=== PATIENT | male | born 1990 | race Two or more races ===

== ENCOUNTER 2019-12-06 10:01 | Emergency (ER) | payer SELFPAY ==
[2019-12-06 10:10] VITALS: BP 152/75; PULSE 81; RESP 18; TEMP 36.6; O2SAT 98; BMI 23.5
--- NOTE | 2019-12-06 10:26 | PC.NURSE ---
Ipad used for interpretation services.
--- NOTE | 2019-12-06 10:30 | CT_ITS ---
PROCEDURE: CT ABDOMEN PELVIS WO CON CLINICAL INDICATION: lower abd pain, vomitting COMPARISON: No exams were available for comparison TECHNIQUE: Axial images obtained with sagittal and coronal reformats. All CT scans at the facility use one or more dose reduction, viz: automated exposure control, ma/kV adjustment per patient size (including targeted exams where dose is matched to indication, i.e. head), or iterative reconstruction technique. FINDINGS: Lower thorax: No acute finding ABDOMEN: Liver: No masses or biliary dilatation. Gallbladder: There somewhat contracted however the stomach is distended with ingested food particles. There are no obvious gallstones but the bile is somewhat heterogenic suggesting possibility of biliary sludge. Pancreas: No masses or peripancreatic fluid collections. Spleen: unremarkable Adrenals: unremarkable Kidneys/ureters: unremarkable ABDOMEN & PELVIS: Stomach bowel: The stomach is distended with ingested food particles and gas but otherwise appears normal. The duodenal sweep and small bowel appear grossly normal. The appendix is not definitely seen but no pericecal inflammatory changes. There is moderate scattered stool and gas seen throughout the colon. There is mild diverticulosis of the lower descending sigmoid colon and pre diverticular changes of the sigmoid colon is well with accentuated haustra folds. Peritoneum: No abnormal fluid collections. No obvious inflammatory changes. No free air. Lymph nodes: No enlarged lymph nodes apparent. Vasculature: No evidence of abdominal aortic aneurysm. No retroperitoneal hemorrhage evident. Bones: No acute fracture PELVIS: Reproductive: unremarkable Bladder: Nondistended. No obvious stones or masses. The prostate is normal in size. Appendix: Not definitely visualized but no pericecal inflammatory changes are noted. IMPRESSION: Contracted gallbladder with some slightly heterogenic appearing bile suggesting possibility of biliary sludge and consider follow-up ultrasound right upper quadrant if clinically indicated. Findings of mild diverticulosis lower descending and sigmoid colon without diverticulitis Dictated by: Dr. Gunner Pope MD 12/06/2019 10:53 Dr. Gunner Pope MD in [facility] 12/06/2019 10:53
[2019-12-06 11:00] LABS: Basophils % 0.2 % (0.1-2.0); Eosinophils # 0.1 K/mm3 (0.0-0.4); Eosinophils % 0.6 % (0.1-12.0); Hematocrit 44.2 % (42.0-52.0); Hemoglobin 15.2 g/dL (14.1-18.0); Lymphocytes # 2.5 K/mm3 (0.7-4.5); Lymphocytes % 28.7 % (10-50); Mean Corpuscular HGB Conc 34.5 g/dL (31.8-35.4); Mean Corpuscular Hemoglobin 32.9 pg (27.0-31.2); Mean Corpuscular Volume 95.4 fl (80-94); Mean Platelet Volume 7.3 fl (7.4-10.4); Monocytes # 0.6 K/mm3 (0.1-1.0); Monocytes % 6.6 % (1.7-9.3); Neutrophils # 5.5 K/mm3 (1.8-7.8); Neutrophils % 63.9 % (37.0-80.0); Platelet Count 279 K/mm3 (142-424); Red Blood Count 4.64 M/mm3 (4.60-6.20); Red Cell Distribution Width 12.4 % (11.5-17.5); White Blood Count 8.6 K/mm3 (4.8-10.8)
[2019-12-06 11:12] LABS: Chloride 105 mmol/L (98-107); Potassium 3.8 mmoL/L (3.5-5.1); Sodium 141 mmol/L (136-145)
[2019-12-06 11:15] LABS: Alanine Aminotransferase 30 U/L (12-78); Alkaline Phosphatase 64 U/L (38-126); Amylase 59 U/L (30-110); Anion Gap 12.8 mEq/L (5-15); Aspartate Amino Transferase 43 U/L (17-59); Bilirubin,Total 0.5 mg/dl (0.2-1.3); Blood Urea Nitrogen 15 mg/dl (9-20); Calcium 9.4 mg/dl (8.4-10.2); Carbon Dioxide 27 mmol/L (22.0-30.0); Creatinine Clearance Estimated 131 mL/min (50-200); Estimated Glomerular Filt Rate 114 ml/min (>60); GFR (African American) 138 ML/MIN (>60); Glucose 114 mg/dl (74-100); Lipase 40 U/L (23-300)
[2019-12-06 11:16] LABS: Albumin/Globulin Ratio 1.3 (1.1-1.8); Globulin 3.2 g/dL (1.3-3.2); Total Protein,Serum 7.2 g/dl (6.3-8.2)
[2019-12-06 11:21] LABS: C-Reactive Protein 6.4 mg/L (0-4)
--- NOTE | 2019-12-06 11:21 | PC.NURSE ---
ALANNA LUCAS states to contact Dr. Kim he is who is doing scopes today.
[2019-12-06 11:22] LABS: Erythrocyte Sedimentation Rate 14 mm/hr (0-15)
--- NOTE | 2019-12-06 11:22 | PC.NURSE ---
contacted pre op to contact Dr. Kim, spoke with Jagdish who states Dr Kim is in the scope room but he will have him contact ER
[2019-12-06 11:26] VITALS: BP 123/80; PULSE 62; O2SAT 99
--- NOTE | 2019-12-06 11:44 | PC.NURSE ---
per ER MD request, follow up appt with Dr. Trejo made for pt: Monday (December 08) at 9 am
--- NOTE | 2019-12-06 11:46 | [facility].EDABDPAI ---
ED Disposition Clinical Impression: Gastroenteritis, Abdominal pain Disposition: Home, Self-Care Condition on Discharge: Good Instructions: DI for Acute Abdomen Prescriptions: Dicyclomine HCl [Bentyl 10mg capsule] 20 mg PO QID PRN 10 Days #40 cap PRN Reason: Abdominal Distention Prescription Printed Ondansetron [Zofran 4mg ODT] 4 mg PO TID PRN 4 Days #15 PRN Reason: Nausea Prescription Printed Referrals: PCP,No [Primary Care Provider] - - Critical Care Critical Care Time: No Attestation: On 12/06/19, the high probability of a clinically significant, sudden or life threatening deterioration of the following system(s) required my full and direct attention, intervention and personal management. The time I documented below is in addition to time spent performing reported procedures but includes the following listed in this critical care notation. Medical Decision Making - Medical Records Medical records reviewed: Yes: I reviewed the patient's medical records. - Devang Inquiry Pt receiving controlled substance: No Vital Signs: 12/06/19 10:10 12/06/19 11:26 Temperature 97.9 F Temperature Source Oral Pulse Rate [Right Radial] 81 62 Respiratory Rate 18 Blood Pressure [Right Arm] 152/75 H 123/80 Blood Pressure Mean [Right Arm] 100 94 Blood Pressure Source [Right Arm] Automatic Cuff Automatic Cuff Blood Pressure Position [Right Arm] Sitting Sitting 02 Sat by Pulse Oximetry 98 99 Oxygen Delivery Method Room Air Room Air - Lab Data Lab results reviewed: Yes: I reviewed the patient's lab results. Lab Results 12/06/19 10:56: WBC 8.6, RBC 4.64, Hgb 15.2, Hct 44.2, MCV 95.4 H, MCH 32.9 H, MCHC 34.5, RDW 12.4, Plt Count 279, MPV 7.3 L, Neut % (Auto) 63.9, Lymph % (Auto) 28.7, [place] % (Auto) 6.6, Eos % (Auto) 0.6, Baso % (Auto) 0.2, Neut # (Auto) 5.5, Lymph # (Auto) 2.5, [place] # (Auto) 0.6, Eos # (Auto) 0.1, Baso # (Auto) 0.0, ESR 14 12/06/19 10:56: Sodium 141, Potassium 3.8, Chloride 105, Carbon Dioxide 27, Anion Gap 12.8, BUN 15, Creatinine 0.80, Estimated Creat Clear 131, Estimated GFR 114, Est GFR ( Amer) 138, Glucose 114 H, Calcium 9.4, Total Bilirubin 0.5, AST 43, ALT 30, Alkaline Phosphatase 64, C-Reactive Protein 6.4 H, Total Protein 7.2, Albumin 4.0, Globulin 3.2, Albumin/Globulin Ratio 1.3, Amylase 59, Lipase 40 Result diagrams: 12/06/19 10:56 12/06/19 10:56 - CT Data CT Scan: Abdomen, Pelvis Time Received: 16:[address] Reviewed: Yes: I have viewed the radiologist's interpretation Preliminary Findings: Abnormal (She has biliary sludge without evidence of cholelithiasis or cholecystitis. Patient also has some diverticulosis without diverticulitis.) Abdominal Pain HPI - General Chief Complaint: Abdominal Pain Stated Complaint: abd pain Time Seen by Provider: 12/06/19 11:46 Mode of Arrival: Ambulatory Limitations: Language Barrier Description of Symptoms (Recalled from ER Triage Doc. by RN): Pt reports lower abd pain x2 days, pt reports pain worsened lastnight after eating. Pt reports 3-4 episdoes of vomitting. Denies fevers. - History of Present Illness HPI narrative: 29-year-old gentleman presents with a 2-day history of increasing abdominal pain. 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 He rates his pain presently 4 out of 10 classifies a sharp and pressure-like sensation that is colicky in nature. He states exacerbating factors include eating and relieving factors include bowel rest. Patient denies any recent fever shakes or chills. APatient denies any recent cough or shortness of breath, patient denies any sore throat or headache, patient denies any loss of taste or smell, patient denies any malaise or fatigue, patient denies any abdominal pain nausea vomiting or diarrhea. - Related Data Previous Rx's Medic
[2019-12-06 11:55] VITALS: BP 120/79; PULSE 61; O2SAT 99
[2019-12-06 12:08] VITALS: BP 128/83; PULSE 62; RESP 16; TEMP 36.6; O2SAT 97
== END 2019-12-06 12:11 | disposition home or self-care (01) ==
PROVIDERS: Emergency Provider Family Medicine
DX: K52.9 Noninfective gastroenteritis and colitis, unspecified (principal)
CPT/HCPCS: 74176; 80053; 82150; 83690; 85025; 85651; 86140; 99283